=== PATIENT | male | born 1955 | race Caucasian/White ===

== ENCOUNTER → 2018-10-01 | Outpatient (CLI) | payer OTHER ==
--- NOTE | 2018-10-01 08:40 | RAD ---
EXAM DESCRIPTION: Hand,Right 3 Views CLINICAL HISTORY: 63 years Male, PAIN IN RIGHT HAND COMPARISON: None. FINDINGS: Three views of the right hand show no acute fracture or malalignment. [id number]-[id number] joint space narrowing is noted at the triscaphe, first CMC and first MCP joints. The joint spaces are otherwise fairly well maintained. Tiny round lucencies involving a few carpal bones likely represent degenerative cysts. A tiny metallic foreign body is seen in the soft tissues of the right thumb proximally, questionable acuity. No additional radiopaque foreign body or soft tissue gas. IMPRESSION: [id number] degenerative changes involving the triscaphe, first CMC and first MCP joints. Electronically signed by: Ross Rodriguez MD 10/01/2018 8:38 AM [facility]
--- NOTE | 2018-10-01 08:40 | RAD ---
EXAM DESCRIPTION: Hand,Left 3 Views CLINICAL HISTORY: 63 years Male, PAIN IN LEFT HAND COMPARISON: None. FINDINGS: Three views of the left hand show no acute fracture or malalignment. Mild joint space narrowing involves the interphalangeal joint of the thumb with osteophyte formation at the same location. There is mild joint space narrowing at the first CMC joint. Tiny degenerative cysts involve the carpal bones. The radiocarpal joint space is well-maintained. No radiopaque foreign body or soft tissue gas. IMPRESSION: Mild degenerative changes in the left thumb and wrist as detailed above. Electronically signed by: Ross Rodriguez MD 10/01/2018 8:39 AM [facility]
== END ==
LOC: RAD 09:27
PROVIDERS: ATTEND Orthopaedic Surgery
DX: Z01.818 Encounter for other preprocedural examination (principal); M79.641 Pain in right hand

== ENCOUNTER 2018-10-13 06:03 | Day surgery (SDC) | payer OTHER ==
--- NOTE | 2018-10-08 10:26 | HP ---
CHIEF COMPLAINT: Left hand pain and numbness. HISTORY OF PRESENT ILLNESS: Solis is a 63-year-old male with a history of hand pain and numbness. He has had this going on for quite some time and it has now become on a constant basis. Because of the severity of his symptoms, he has requested operative intervention. After discussing the risks, benefits and alternatives to that, the patient has given informed consent. PAST SURGICAL HISTORY: 1. Cardiac stent placement. 2. Lumbar fusion. MEDICATIONS: 1. Tamsulosin. 2. Amlodipine. 3. Losartan. 4. Atorvastatin. 5. Lyrica. 6. Combivent. ALLERGIES: NO KNOWN DRUG ALLERGIES. CODE STATUS: Full code. IMMUNIZATIONS: Up to date. FAMILY HISTORY: None pertinent to today's complaint. SOCIAL HISTORY: The patient does not drink or use any illicit drugs. He does smoke. REVIEW OF SYSTEMS: Negative except as indicated in the History of Present Illness. PHYSICAL EXAMINATION: VITAL SIGNS: Blood pressure 128/87. Pulse 62. Height 5'8". Weight 136 pounds. MENTAL STATUS: The patient is awake, alert, and is able to give a good history and participate in the physical. The patient is oriented to person, place and time. SKIN: Normal tone and turgor. MUSCULOSKELETAL: He has numbness at rest, so carpal compression and Tinel's are equivocal. He has weakness in abduction and some minor thenar atrophy. He has numbness in the first two digits and the radial aspect of the fourth digit. He has positive Tinel's at the elbow. There is no significant hypothenar atrophy. ASSESSMENT: 1. Carpal tunnel syndrome. 2. Ulnar nerve entrapment. PLAN: We talked about his diagnoses. At this point, Mr. Hayes only wants to pursue carpal tunnel release and forego ulnar nerve transposition at this time. We have discussed the risks, benefits, and alternatives to that and the patient has given informed consent. #[id number] [facility]
[2018-10-13] MEDS ORDERED: LACTATED RINGERS 1,000 ML ONE (08:12)
[2018-10-13] MEDS ORDERED: SODIUM CHL 0.9% 100ML MINI-BAG 100 ML IVPB ONE (08:12)
[2018-10-13] MEDS ORDERED: ceFAZolin SODIUM 1 GM VIAL ONE (08:12)
[2018-10-13] MEDS ORDERED: BUPIVACAINE 0.25% INJ 30 ML VIAL INJ ONE (08:37)
[2018-10-13] MEDS ORDERED: LIDOCAINE 1% 10 ML VIAL INJ ONE ×2 (08:38→10:00)
[2018-10-13] MEDS ORDERED: LEVALBUTEROL NEBS 1.25 MG/3 ML VIAL NEB ONE (09:11)
[2018-10-13] MEDS ORDERED: MIDAZOLAM INJ 5 MG/5 ML VIAL ONE (09:58)
[2018-10-13] MEDS ORDERED: fentaNYL CITRATE INJ 50 MCG/ML AMP ONE (09:58)
[2018-10-13] MEDS ORDERED: PROPOFOL 200 MG/20 ML VIAL IV ONE (10:00)
[2018-10-13] MEDS ORDERED: raNITIdine HCL INJ 25 MG/ML VIAL IV ONE (10:00)
[2018-10-13] MEDS: ceFAZolin SODIUM 1 GM VIAL ONE ×2 (10:26→10:31)
[2018-10-13] MEDS: VANCOMYCIN HCL INJ 1,000 MG VIAL IVPB ONE ×2 (10:27→10:31)
[2018-10-13 11:29] VITALS: BP 134/70; TEMP 97.9; O2SAT 96
--- NOTE | 2018-10-15 11:25 | OP ---
PREOPERATIVE DIAGNOSIS: 1. Carpal tunnel syndrome. POSTOPERATIVE DIAGNOSIS: 1. Carpal tunnel syndrome. PROCEDURE: 1. Carpal tunnel release. SURGEON: Edy Hogue MD. COOK BOAT: Rodríguez Forbes CST, SA-C. ANESTHESIA: Local with sedation. COMPLICATIONS: None. FINDINGS: 1. Narrowing of the median nerve. 2. Thickening of the transverse carpal ligament. 3. Thenar atrophy. INDICATION: Mr. Hayes has a long history of compression of the median nerve with symptoms consistent with carpal tunnel syndrome. Because of that, he has requested operative intervention. After discussing the risks, benefits and alternatives to that, the patient has given informed consent for carpal tunnel release. PROCEDURE: The patient was brought to the Operating Room and placed in the supine position. Sedation was administered and local anesthetic was injected into the operative area under sterile conditions. After the injection of anesthetic, the arm was sterilely prepped and draped. A longitudinal incision was made directly overlying the transverse carpal ligament and blunt dissection was carried down to the ligament. The transverse carpal ligament was sharply transected along its length and a [place] elevator was used to ensure complete release of the ligament. Once release had been confirmed, the wound was thoroughly irrigated and the wound was closed with Nylon suture. A sterile dressing was placed and the patient was taken to the Day Surgery Unit. POSTOPERATIVE PLAN: The patient has been encouraged to do range of motion of the digits and will followup with us in two days. #[id number] [facility]
== END 2018-10-13 11:15 | disposition home or self-care (01) ==
LOC: AMB 06:03
PROVIDERS: ATTEND Orthopaedic Surgery
DX: G56.02 Carpal tunnel syndrome, left upper limb (principal); I10 Essential (primary) hypertension; I25.10 Atherosclerotic heart disease of native coronary artery without angina pectoris; J44.9 Chronic obstructive pulmonary disease, unspecified; Z95.5 Presence of coronary angioplasty implant and graft; Z79.899 Other long term (current) drug therapy
CPT/HCPCS: 01810; 64721; 94640; J0690; J2250; J2780; J3010; J3370; J3490; J7050; J7120; J7614